=== PATIENT | male | born 1960 | race African-American/Black ===

== ENCOUNTER 2020-04-02 13:21 | Emergency (ER) | payer OTHER ==
[2020-04-02] MEDS ORDERED: IBUPROFEN 600 MG TABLET PO ONE (14:25)
[2020-04-02] MEDS ORDERED: DIPH/PERTUSS(ACELL)/TETANUS VAC/PF 0.5 ML SYR (>=10YO) IM ONE (14:25)
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
[2020-04-02 16:08] VITALS: BP 116/81
== END 2020-04-02 17:08 | disposition home or self-care (01) ==
LOC: ER 13:21
DX: S80.212A Abrasion, left knee, initial encounter (principal); S80.211A Abrasion, right knee, initial encounter; V13.4XXA Pedal cycle driver injured in collision with car, pick-up truck or van in traffic accident, initial encounter; F17.200 Nicotine dependence, unspecified, uncomplicated
CPT/HCPCS: 90471; 90715; 99283